=== PATIENT | female | born 1960 | race Caucasian/White ===

== ENCOUNTER 2019-10-11 19:12 | Emergency (ER) | payer OTHER ==
[~2019-10-11] VITALS: Ht 160 cm; Wt 71.7 kg
[2019-10-11] MEDS ORDERED: OMEGA 3-6-9 CO400 MG PO (19:17)
[2019-10-11] MEDS ORDERED: SYNTHROID100 MCG PO (19:17)
[2019-10-11] MEDS ORDERED: CALTRATE+D3 PL1 EACH PO (19:17)
[2019-10-11] MEDS ORDERED: TUSNEL LIQUID178 ML PO (20:56)
[2019-10-11] MEDS ORDERED: CLARITIN10 MG PO (20:56)
== END 2019-10-11 21:24 | disposition home or self-care (01) ==
LOC: ER 19:12
DX: R05 Cough (principal)

== ENCOUNTER 2020-01-09 16:27 | Emergency (ER) | payer OTHER ==
[~2020-01-09] VITALS: Ht 160 cm; Wt 72.6 kg
[~2020-01-09 16:27] MED LIST: CALTRATE+D3 PL1 EACH PO; CLARITIN10 MG PO; OMEGA 3-6-9 CO400 MG PO; SYNTHROID100 MCG PO; TUSNEL LIQUID178 ML PO
== END 2020-01-09 18:11 | disposition home or self-care (01) ==
LOC: ER 16:27
DX: S00.83XA Contusion of other part of head, initial encounter (principal); S80.01XA Contusion of right knee, initial encounter; W18.09XA Striking against other object with subsequent fall, initial encounter; Y93.89 Activity, other specified; Y92.098 Other place in other non-institutional residence as the place of occurrence of the external cause; Y99.8 Other external cause status